=== PATIENT | male | born 1970 | race American Indian/Alaskan Native ===

== ENCOUNTER 2020-01-20 08:40 | Emergency (ER) | payer MEDICARE ==
[2020-01-20] MEDS ORDERED: ASPIRIN 325 MG TAB PO ONE (08:53)
[2020-01-20 09:08] LABS: Basophils % (Auto) 0.4 % (0.0-1.8); Eosinophils # (Auto) 0.1 K/mm3 (0.0-0.4); Eosinophils % (Auto) 1.5 % (0.0-4.3); Hematocrit 43.9 % (35.5-45.6); Hemoglobin 14.6 gm/dl (11.8-15.2); Lymphocytes # (Auto) 1.6 K/mm3 (1.2-5.4); Lymphocytes % (Auto) 26.5 % (13.4-35.0); Mean Corpuscular HGB Conc 33 % (32-34); Mean Corpuscular Volume 75 fl (84-94); Monocytes # (Auto) 0.6 K/mm3 (0.0-0.8); Monocytes % (Auto) 9.7 % (0.0-7.3); Platelet Count 181 K/mm3 (140-440); Red Blood Count 5.83 M/mm3 (3.65-5.03); Red Cell Distribution Width 18.5 % (13.2-15.2)
--- NOTE | 2020-01-20 09:15 | XRay Report ---
. XR chest routine 2V INDICATION / CLINICAL INFORMATION: Chest Pain. COMPARISON: None available. FINDINGS: SUPPORT DEVICES: None. HEART / MEDIASTINUM: No significant abnormality. LUNGS / PLEURA: No significant pulmonary or pleural abnormality. No pneumothorax. ADDITIONAL FINDINGS: No significant additional findings. IMPRESSION: 1. No acute findings. Signer Name: Julio Sandoval MD Signed: 01/20/2020 9:10 AM Workstation Name: [id number]
[2020-01-20 09:28] LABS: BUN/Creatinine Ratio 15; Blood Urea Nitrogen 16 mg/dL (9-20); Calcium 9.6 mg/dL (8.4-10.2); Hemolysis Index 14
--- NOTE | 2020-01-20 11:00 | Emergency Department Report ---
ED General Adult HPI - General Chief complaint: Chest Pain Stated complaint: CHEST PAIN Time Seen by Provider: 01/20/20 10:19 Source: patient Mode of arrival: Ambulatory Limitations: No Limitations - History of Present Illness Initial comments: 49-year-old male without significant past medical history presenting with chief complaint of chest pain, right-sided, onset at 7:00 this morning. He states that he was loading a truck and started to feel pain in the right side of his chest, radiated down the right arm associated with numbness and tingling, states that he felt short of breath and then began a pain with breathing. States that now the only thing that remains is pain with movement and breathing, all other symptoms have resolved. Denies any weakness, difficulty breathing, abdominal pain, vomiting, severe headache or any other symptoms. Onset was sudden, symptoms are constant but improving, worse with movement better with rest. He states he does not really feel it unless he is moving or breathing. Severity scale (0 -10): 8 - Related Data Previous Rx's Medication Instructions Recorded Last Taken Type Cyclobenzaprine [Flexeril] 10 mg PO TID PRN #15 tablet 01/20/20 Unknown Rx Allergies Allergy/AdvReac Type Severity Reaction Status Date / Time No Known Allergies Allergy Unverified 01/20/20 08:49 ED Review of Systems ROS: Stated complaint: CHEST PAIN Other details as noted in HPI Comment: All other systems reviewed and negative Respiratory: see HPI Cardiovascular: as per HPI ED Past Medical Hx - Past Medical History Previous Medical History?: Yes Hx Hypertension: Yes - Surgical History Past Surgical History?: No - Social History Smoking Status: Current Every Day Smoker Substance Use Type: Alcohol - Medications Home Medications: Home Medications Medication Instructions Recorded Confirmed Last Taken Type Cyclobenzaprine [Flexeril] 10 mg PO TID PRN #15 tablet 01/20/20 Unknown Rx ED Physical Exam - General Limitations: No Limitations General appearance: alert, in no apparent distress - Head Head exam: Present: atraumatic, normocephalic - Eye Eye exam: Present: normal appearance - ENT ENT exam: Present: mucous membranes moist - Neck Neck exam: Present: normal inspection - Respiratory Respiratory exam: Present: normal lung sounds bilaterally, other (Right lateral chest wall pain with breathing and also somewhat reproduced with movement but not palpation). Absent: respiratory distress, wheezes, rales, rhonchi - Cardiovascular Cardiovascular Exam: Present: regular rate, normal rhythm. Absent: systolic murmur, diastolic murmur, rubs, gallop - GI/Abdominal GI/Abdominal exam: Present: soft, normal bowel sounds - Rectal Rectal exam: Present: deferred - Extremities Exam Extremities exam: Present: normal inspection - Back Exam Back exam: Present: normal inspection - Neurological Exam Neurological exam: Present: alert, oriented X3 - Psychiatric Psychiatric exam: Present: normal affect, normal mood - Skin Skin exam: Present: warm, dry, intact, normal color. Absent: rash ED Course Vital Signs 01/20/20 08:52 Temperature 98.0 F Pulse Rate 74 Respiratory 18 Rate Blood Pressure 132/95 [Right] O2 Sat by Pulse 98 Oximetry ED Medical Decision Making - Lab Data Result diagrams: 01/20/20 08:57 01/20/20 08:57 - EKG Data -: EKG Interpreted by Me EKG shows normal: sinus rhythm, axis, intervals Rate: normal - EKG Data Interpretation: nonspecific ST-T wave mercedes (J-point elevation in V2 V3 consistent with early repolarization) - Radiology Data Radiology results: report reviewed Negative chest x-ray - Medical Decision Making 49-year-old male without significant past medical history presenting with chief complaint of chest pain, right-sided, onset at 7:00 this morning. He states that he was loading a truck and started to feel pain in the right side of his chest, radiated down the right arm associated with numbness and tingling, states that he felt short of breath and then began a pain with breathing. States that now the only thing that remains is pain with movement and breathing, all other symptoms have resolved. Denies any weakness, difficulty breathing, abdominal pain, vomiting, severe headache or any other symptoms. Onset was sudden, symptoms are constant but improving, worse with movement better with rest. He states he does not really feel it unless he is moving or breathing. On exam the pain is reproducible in the right lateral chest with movement and breathing. EKG shows J-point elevation in V2 V3, no reciprocal change, no STEMI. Labs are pending, chest x-ray pending. Patient with no further complaints, troponin negative x2, EKG consistent with early repolarization. D-dimer negative. Pain reproducible and consistent with musculoskeletal etiology. Recommend outpatient follow-up and return precautions is given. - Differential Diagnosis Chest wall pain, radiculopathy, ACS less likely, PE Critical care attestation.: If time is entered above; I have spent that time in minutes in the direct care of this critically ill patient, excluding procedure time. ED Disposition Clinical Impression: Musculoskeletal chest pain Disposition: TO HOME OR SELFCARE Is pt being admited?: No Condition: Stable Instructions: Chest Pain (ED), Chest Wall Pain, [id number] Prescriptions: Cyclobenzaprine [Flexeril] 10 mg PO TID PRN #15 tablet PRN Reason: Muscle Spasm Referrals: PRIMARY CARE, [Primary Care Provider] - 3-5 Days REAL CHAMBERS MD [Staff Physician] - 3-5 Days Time of Disposition: 12:29
[2020-01-20 12:41] VITALS: BP 151/78
== END 2020-01-20 12:37 | disposition home or self-care (01) ==
LOC: ED 08:40
DX: R07.89 Other chest pain (principal); R20.2 Paresthesia of skin; R20.0 Anesthesia of skin; I10 Essential (primary) hypertension; F17.200 Nicotine dependence, unspecified, uncomplicated; Z79.899 Other long term (current) drug therapy
CPT/HCPCS: 36415; 71046; 80048; 84484; 85025; 85379; 93005